=== PATIENT | female | born 1940 | race American Indian/Alaskan Native ===

== ENCOUNTER 2017-07-17 11:17 | Inpatient (IN) | payer MEDICARE ==
[2017-07-17] MEDS ORDERED: Albuterol-Ipratrop 3 mg / 0.5 (3 ml) UD IH STA (11:57)
[2017-07-17] MEDS ORDERED: Albuterol-Ipratrop 3 mg / 0.5 (3 ml) UD ONE ×4 (12:08→23:53)
[2017-07-17 12:10] LABS: BASO # 0.1 K/uL (0.0-0.2); BASO % 0.8 % (0.0-2.0); EOS % 0.1 % (0.0-4.0); HEMOGLOBIN 14.3 g/dL (11.0-16.0); LYMPH # 1.4 K/uL (1.0-4.3); LYMPH % 9.7 % (20.0-40.0); MEAN CELL VOLUME 91.1 fL (81.0-99.0); MEAN CORPUSCULAR HEMOGLOBIN 29.2 pg (27.0-31.0); MEAN PLATELET VOLUME 9.7 fL (7.2-11.7); MONO # 0.7 K/uL (0.0-0.8); MONO % 5.1 % (0.0-10.0); NEUT # 11.9 K/uL (1.8-7.0); NEUT % 84.3 % (50.0-75.0); NRBC % 0.1 % (0.0-2.0); PLATELET COUNT 131 K/uL (130-400); RED CELL DISTRIBUTION WIDTH 16.2 % (11.5-14.5); WHITE BLOOD COUNT 14.1 K/uL (4.8-10.8)
[2017-07-17 12:19] LABS: INR 0.9; PROTHROMBIN TIME 10.1 SECONDS (9.7-12.2)
[2017-07-17 12:31] LABS: ALB/GLOB RATIO 1.3 (1.0-2.1); ALBUMIN 3.9 g/dL (3.5-5.0); CALCIUM 9.2 mg/dl (8.6-10.4)
[2017-07-17 12:37] LABS: TOTAL CELLS COUNTED 100
[2017-07-17 12:39] LABS: ANISOCYTOSIS SLIGHT; LYMPHOCYTE 10 % (20-40); MONOCYTE 5 % (0-10); NEUTROPHIL 85 % (50-75); PLATELET ESTIMATE NORMAL (NORMAL)
[2017-07-17 12:41] LABS: TROPONIN I 0.038 ng/mL (0.00-0.120)
--- NOTE | 2017-07-17 13:07 | RAD ---
HISTORY: SOB COMPARISON: None available. TECHNIQUE: Chest, one view. FINDINGS: Examination limited by habitus. The patient's chin obscures evaluation of the lung apices. External artifact projects over the upper mediastinum. LUNGS: No focal consolidation. Please note that chest x-ray has limited sensitivity for the detection of pulmonary masses. PLEURA: No significant pleural effusion identified. No definite pneumothorax . CARDIOVASCULAR: Median sternotomy wires, several of which appear discontinuous. Heart size appears top normal. OSSEOUS STRUCTURES: No acute osseous abnormality identified. VISUALIZED UPPER ABDOMEN: Unremarkable. OTHER FINDINGS: None. IMPRESSION: No focal consolidation identified. Additional findings as above.
[2017-07-17 14:39] LABS: SQUAMOUS EPITHIAL < 1 /hpf (0-5); URINE BILIRUBIN NEGATIVE (NEGATIVE); URINE BLOOD NEGATIVE (NEGATIVE); URINE CLARITY Clear (Clear); URINE COLOR Straw (YELLOW); URINE GLUCOSE (UA) NORMAL (Normal); URINE LEUKOCYTE ESTERASE NEG Leu/uL (Negative); URINE NITRATE NEGATIVE (NEGATIVE); URINE PROTEIN 2+ mg/dL (NEGATIVE); URINE UROBILINOGEN NORMAL mg/dL (0.2-1.0)
[2017-07-17] MEDS ORDERED: Enoxaparin 40 mg Syringe SC STA (14:49)
--- NOTE | 2017-07-17 14:54 | C.PDOC ---
History Of Present Illness 76 year old female presents to the ER with a complaint of SOB. Patient states she was seen at [facility] yesterday for COPD, she reports she was discharged home with no improvement and states it has gotten worse which prompted visit. Denies chest pain, nausea, or vomiting. Time Seen by Provider: 07/17/17 11:37 Chief Complaint (Nursing): Respiratory Distress History Per: Patient History/Exam Limitations: no limitations Current Symptoms Are (Timing): Still Present Initiating Event: Other (not known) Current Respiratory Medications: None Associated Symptoms: denies: Fever, Chills, Chest Pain Recent travel outside of the [place]: No Past Medical History Vital Signs: Last Vital Signs Temp 99.3 F 07/17/17 11:23 Pulse 96 H 07/17/17 14:30 Resp 26 H 07/17/17 14:30 BP 133/86 07/17/17 14:30 Pulse Ox 100 07/17/17 14:54 - Medical History PMH: Atrial Fibrillation (UNSURE), COPD, HTN Surgical History: CABG Family History: States: Unknown Family Hx - Social History Hx Alcohol Use: No Hx Substance Use: No - Immunization History Hx Tetanus Toxoid Vaccination: No Hx Influenza Vaccination: No Hx Pneumococcal Vaccination: No Review Of Systems Constitutional: Negative for: Fever, Chills Cardiovascular: Negative for: Chest Pain, Palpitations Respiratory: Positive for: Shortness of Breath Gastrointestinal: Negative for: Nausea, Vomiting, Diarrhea Physical Exam - Physical Exam Appears: Chronically Ill, Other (SOB) Skin: Normal Color, Warm, Dry Head: Atraumatic, Normacephalic Eye(s): bilateral: Normal Inspection Oral Mucosa: Moist Neck: Normal, Supple Chest: Symmetrical, No Tenderness Cardiovascular: Rhythm Regular Respiratory: Decreased Breath Sounds, No Rales, No Rhonchi, No Wheezing Gastrointestinal/Abdominal: Soft, No Tenderness Neurological/Psych: Oriented x3, Normal Speech ED Course And Treatment - Laboratory Results Result Diagrams: 07/17/17 12:05 07/17/17 12:05 ECG: Interpreted By Me, Viewed By Me ECG Rhythm: Sinus Rhythm ECG Interpretation: Normal Interpretation Of ECG: Diffuse ST/T changes mostly in inferior leads. Rate From EC O2 Sat by Pulse Oximetry: 100 (Room air) Pulse Ox Interpretation: Normal Progress Note: Patient refused bipap, started on nebulizer and solumedrol. Troponin was negative, bun/creatinine was elevated, d dimer was elevated. Patient was sent for VQ scan but could not tolerate it. Patient started on lovenox, case discussed with Dr. Wong who accepted patient to telemetry for admission. Disposition - Disposition Disposition Time: 14:54 Condition: SERIOUS - Clinical Impression Clinical Impression: Dyspnea, Chronic obstructive lung disease, Elevated d-dimer - PA / FITTING SUPERVISOR / Resident Statement MD/DO has reviewed & agrees with the documentation as recorded. - Scribe Statement The provider has reviewed the documentation as recorded by the Scribumu Wolfe All medical record entries made by the Malena were at my direction and personally dictated by me. I have reviewed the chart and agree that the record accurately reflects my personal performance of the history, physical exam, medical decision making, and the department course for this patient. I have also personally directed, reviewed, and agree with the discharge instructions and disposition.
[2017-07-17] MEDS ORDERED: Enoxaparin 60 mg Syringe ONE (14:58)
[2017-07-17] MEDS ORDERED: guaiFENesin-Codeine 100-10mg/5ml Syrup (10ml) UD PO PRN (15:20)
[2017-07-17] MEDS ORDERED: Oxycodone/Acetaminophen 5/325 mg Tab PO PRN (15:20)
[2017-07-17] MEDS ORDERED: Fluticasone Nasal 50 mcg/Spray NAS PRN ×2 (15:21→16:33)
--- NOTE | 2017-07-17 15:30 | CP.PCM.PN ---
Subjective - Date & Time of Evaluation Date of Evaluation: 07/17/17 Time of Evaluation: 15:28 - Subjective Subjective: CC: SOB, Cough, Chest Pain This patient is a 76yo F who was recently d/c from [facility] for similar symptoms yesterday. She states "she received some antibiotics and breathing treatments and didn't seem to get any better". She states she recently developed a cough as well, and just cannot seem to catch her breath. She states she feels diaphoretic as well. She is REFUSING bipap at this time, and also states that she is refusing intubation at any point to help save her life; she does however desire resuscitation (chest compressions) if her heart is to stop. She denies any leg swelling, or pink frothy sputum. She states the shortness of breath has gotten worse since she left the hospital. No sick contacts, no travel. PMhx: breast CA s/p mastectomy on the left, thyroid cancer, CABG for triple vessel disease (no heart attack according to patient) Allergies: Denies Meds: Pharmacy is [facility] on [facility] [phone] however was busy every time i called Surgeries: mastectomy, thyroid surgery??? Social: lives at home, walks with cane/walker, states she is independent in all IADL and ADL Objective - Vital Signs/Intake and Output Vital Signs (last 24 hours): Temp Pulse Resp BP Pulse Ox 99.3 F 96 H 30 H 145/83 100 07/17/17 11:23 07/17/17 11:23 07/17/17 11:50 07/17/17 11:23 07/17/17 14:54 - Medications Medications: Current Medications Acetaminophen (Tylenol 325mg Tab) 650 mg PO Q6 PRN PRN Reason: Fever >100.4 F Albuterol/Ipratropium (Duoneb 3 Mg/0.5 Mg (3 Ml) Ud) 3 ml INH RQ4 PRN PRN Reason: SOB Aspirin (Ecotrin) 81 mg PO DAILY [facility] Clopidogrel Bisulfate (Plavix) 75 mg PO DAILY [facility] Enalapril Maleate (Vasotec) 2.5 mg PO DAILY [facility] Enoxaparin Sodium (Lovenox) 60 mg SC Q12 [facility] Famotidine (Pepcid) 20 mg PO DAILY [facility] Fluticasone Propionate (Flonase) 1 spr DAVID DAILY PRN PRN Reason: stuffy nose Guaifenesin/Codeine Phosphate (Guaifenesin/Codeine) 10 ml PO Q6H PRN PRN Reason: Cough Piperacillin Sod/Tazobactam (Sod 3.375 gm/ Sodium Chloride) 100 mls @ 200 mls/ hr IVPB Q12H [facility] Vancomycin HCl 1 gm/ Sodium (Chloride) 250 mls @ 166.7 mls/hr IVPB Q24H [facility] Ibuprofen (Motrin Tab) 400 mg PO Q6 PRN PRN Reason: Pain, Mild (1-3) Methylprednisolone (Solu-Medrol) 40 mg IVP Q8H [facility] Metoprolol Tartrate (Lopressor) 50 mg PO BID [facility] Ondansetron HCl (Zofran Inj) 4 mg IVP Q6 PRN PRN Reason: Nausea/Vomiting Oxycodone/Acetaminophen (Percocet 5/325 Mg Tab) 1 tab PO Q6H PRN PRN Reason: Pain, moderate (4-7) Stop: 07/20/17 15:21 Spironolactone (Aldactone) 25 mg PO BID [facility] - Labs Labs: 07/17/17 12:05 07/17/17 12:05 PT 10.1 SECONDS (9.7-12.2) 07/17/17 12:05 INR 0.9 07/17/17 12:05 APTT 29 SECONDS (21-34) 07/17/17 12:05 - Constitutional Appears: In Acute Distress (patient is currently tripoding in bed, speaking in 2 -3 word sentences, looks very tired ), Chronically Ill - Head Exam Head Exam: ATRAUMATIC, NORMAL INSPECTION - Eye Exam Eye Exam: EOMI, Normal appearance, PERRL Pupil Exam: NORMAL ACCOMODATION - ENT Exam ENT Exam: Mucous Membranes Dry - Neck Exam Neck Exam: Full ROM. absent: Lymphadenopathy - Respiratory Exam Respiratory Exam: Prolonged Expiratory Phase, Rales, Wheezes, Respiratory Distress. absent: Accessory Muscle Use, Chest Wall Tenderness, Decreased Breath Sounds, Clear to Ausculation Bilateral, Stridor, NORMAL BREATHING PATTERN - Cardiovascular Exam Cardiovascular Exam: Tachycardia, +S1, +S2 - GI/Abdominal Exam GI & Abdominal Exam: Soft, Normal Bowel Sounds. absent: Tenderness, Organomegaly, Pulsatile Mass, Rebound - Extremities Exam Extremities Exam: Full ROM. absent: Calf Tenderness - Back Exam Back Exam: NORMAL INSPECTION. absent: CVA tenderness (L), CVA tenderness (R) - Neurological Exam Neurological Exam: Alert, Awake, Oriented x3 - Psychiatric Exam Psychiatric exam: Normal Affect - Skin Skin Exam: Warm Assessment and Plan - Assessment and Plan (Free Text) Assessment: 76yo F admitted to the hospital for respiratory distress Respiratory Distress 2/2 to COPD vs PE vs ACS -patient refusing bipap and intubation at this time; patient is DNI -f/u rapid flu -f/u blood cultures -ABG Shock panel -patient is retaining CO2; 42 on 6L NC; highly recommend bipap even though patient refusing -lactate 1.3 -again should patient decompensate she is REFUSING intubation -patient received Lovenox 60mg in ER for possible PE; however in [place] and will place on Heparin drip at 4am (12 hours after first lovenox dose) -patient is refusing VQ scan at this time; cannot do PE Protocol CTA 2/2 to [place] -tachycardic, SOB, unknown anticoagulation status at hospital visit, previous cancer diagnosis, elevated D-Dimer-->high risk for PE -STAT Echo ordered; f/u results; Right Heart strain more indicative of PE; BNP elevated 1400 -patient with known CAD/CHF (patient does not know previous EF); most recent lexiscan was normal in 04/11 but had previous CABG for triple vessel disease -Initial Troponin negative; no suspicious findings on EKG; patient will be on heparin drip which will cover as well for possible NSTEMI -aspirin, plavix, patient states she takes aldactone? -Duonebs, Solumedrol, O2 Via ventimask PRN -patient cannot remember what COPD meds she takes -still smoking; will give nicotine patch -Telemetry Monitoring Prev Hx of CAD and HTN As per pharmacy records: Metoprolol 50 BID Plavix 75 daily Spironolactone 25 BID Vit D 50k weekly (will hold) Losartan 25mg daily (will hold) Albuterol PRN as needed Q4H Spiriva 18mcg BID Will hold Losartan given that CLARISA and ARB should not be mixed; could be contributing to TE[place] Possible PNA -Vanc 1g Q24H -Zosyn 4g Q12H -HAP since recently discharged from hospital setting [facility] -Elevated WBC, Cough, productive sputum Prophylaxis Pepcid Heart Healthy Diet Heparin Drip PT/OT Eval and treat Case discussed with Dr. Wong
[2017-07-17] MEDS ORDERED: Piperacillin/Tazobact 3.375 gm 100 ML IVPB ONE (15:34)
[2017-07-17] MEDS: Albuterol-Ipratrop 3 mg / 0.5 (3 ml) UD INH PRN (15:41)
[2017-07-17 15:42] LABS: ARTERIAL BLOOD GAS HCO3 24.5 mmol/L (21-28); ARTERIAL BLOOD GAS O2 SAT 99.7 % (95-98); ARTERIAL BLOOD GAS PCO2 46 mm/Hg (35-45); ARTERIAL BLOOD GAS PH 7.35 (7.35-7.45); ARTERIAL BLOOD GAS PO2 121 mm/Hg (80-100); ARTERIAL BLOOD GAS TCO2 26.8 mmol/L (22-28)
[2017-07-17] MEDS: Piperacill/Tazo 4.5gm in Dex 4.5 GM/100 ML BAG IVPB SCH (16:00)
[2017-07-17] MEDS ORDERED: Vancomycin 1 gm/NS 200 ml 1 GM/200 ML BAG IVPB SCH (16:30)
[2017-07-17 20:50] LABS: CK-MB 4.46 ng/mL (0.0-3.38); TROPONIN I 0.064 ng/mL (0.00-0.120)
[2017-07-17] MEDS ORDERED: Albuterol-Ipratrop 3 mg / 0.5 (3 ml) UD INH STA (23:57)
[2017-07-18] MEDS ORDERED: Albuterol-Ipratrop 3 mg / 0.5 (3 ml) UD INH SCH
[2017-07-18] MEDS: Magnesium Sulfate 1 gm in D5W 1 GM/100 ML BAG IVPB SCH ×2 (00:05→00:31)
[2017-07-18] MEDS ORDERED: Piperacillin/Tazobact 3.375 gm 100 ML IVPB ONE (00:27)
[2017-07-18] MEDS ORDERED: Magnesium Sulfate 1 gm in D5W 1 GM/100 ML BAG IVPB ONE (00:27)
[2017-07-18] MEDS: Albuterol-Ipratrop 3 mg / 0.5 (3 ml) UD INH SCH ×7 (00:33→23:50)
--- NOTE | 2017-07-18 00:43 | CP.PCM.CON ---
History of Present Illness - History of Present Illness History of Present Illness: 76 y/o female with pmx of COPD (currently smoking [employer]), h/o heart failure presents to [facility] with SOB. Patient was admitted for COPD exacerbation. Patient denies any chest pain, denies any abdominal pain, denies any headaches. Patient is speaking in 6-10 word sentences. Review of Systems - Review of Systems Systems not reviewed;Unavailable: Acuity of Condition, Respiratory Distress - Cardiovascular Cardiovascular: absent: Dyspnea - Respiratory Respiratory: Dyspnea. absent: Hemoptysis - Gastrointestinal Gastrointestinal: absent: Abdominal Pain, Bloating - Genitourinary Genitourinary: absent: Change in Urinary Stream - Neurological Neurological: absent: Dizziness, Loss of Vision Past Patient History - Infectious Disease Hx of Infectious Diseases: None - Past Social History Smoking Status: Heavy Smoker > 10 Cigarettes Daily - CARDIAC Hx Atrial Fibrillation: Yes (UNSURE) Hx Hypertension: Yes - PULMONARY Hx Chronic Obstructive Pulmonary Disease (COPD): Yes - NEUROLOGICAL Hx Neurological Disorder: No - HEENT Hx HEENT Problems: No - RENAL Hx Chronic Kidney Disease: No - ENDOCRINE/METABOLIC Hx Endocrine Disorders: No - HEMATOLOGICAL/ONCOLOGICAL Hx Cancer: Yes Hx Hepatitis C: No Hx Human Immunodeficiency Virus (HIV): No - INTEGUMENTARY Hx Dermatological Problems: No - MUSCULOSKELETAL/RHEUMATOLOGICAL Hx Falls: No Hx Gout: Yes Hx Unsteady Gait: Yes (uses cane) - GASTROINTESTINAL Hx Gastrointestinal Disorders: No - GENITOURINARY/GYNECOLOGICAL Hx Genitourinary Disorders: No - PSYCHIATRIC Hx Psychophysiologic Disorder: No Hx Substance Use: No - SURGICAL HISTORY Hx Coronary Artery Bypass Graft: Yes Hx Hysterectomy: Yes (partial 1976) Hx Mastectomy: Yes (Left 1984) - ANESTHESIA Hx Anesthesia: Yes Hx Anesthesia Reactions: No Meds Allergies/Adverse Reactions: Allergies Allergy/AdvReac Type Severity Reaction Status Date / Time No Known Allergies Allergy Verified 07/17/17 11:28 - Medications Medications: Current Medications Acetaminophen (Tylenol 325mg Tab) 650 mg PO Q6 PRN PRN Reason: Fever >100.4 F Albuterol/Ipratropium (Duoneb 3 Mg/0.5 Mg (3 Ml) Ud) 3 ml INH RQ4 [facility] Albuterol/Ipratropium (Duoneb 3 Mg/0.5 Mg (3 Ml) Ud) 3 ml INH RQ4 [facility] Aspirin (Ecotrin) 81 mg PO DAILY [facility] Clopidogrel Bisulfate (Plavix) 75 mg PO DAILY [facility] Famotidine (Pepcid) 20 mg PO DAILY [facility] Last Admin: 07/17/17 16:00 Dose: 20 mg Fluticasone Propionate (Flonase) 1 spr DAVID DAILY PRN PRN Reason: stuffy nose Guaifenesin/Codeine Phosphate (Guaifenesin/Codeine) 10 ml PO Q6H PRN PRN Reason: Cough Piperacillin Sod/Tazobactam Sod (Zosyn 4.5 Gm Iv Premix) 4.5 gm in 100 mls @ 200 mls/hr IVPB Q8H [facility] Last Admin: 07/17/17 16:00 Dose: 200 mls/hr Vancomycin/Sodium Chloride (Vancomycin 1 Gm/Ns 200 Ml) 1 gm in 200 mls @ 133.333 mls/hr IVPB Q24H [facility] Stop: 07/22/17 16:31 Last Admin: 07/17/17 17:34 Dose: 133.333 mls/hr Heparin Sodium/Sodium Chloride (Heparin 59709 Units/250ml 1/2 Normal Saline) 25 ,000 units in 250 mls @ 11.431 mls/hr IV .[id number] PRN; Protocol; 18 UNITS/KG/HR PRN Reason: ADJUST RATE PER PROTOCOL Magnesium Sulfate/Dextrose (Magnesium Sulfate 1 Gm/100 Ml D5w) 1 gm in 100 mls @ 300 mls/hr IVPB Q30M [facility] Stop: 07/18/17 00:34 Ibuprofen (Motrin Tab) 400 mg PO Q6 PRN PRN Reason: Pain, Mild (1-3) Methylprednisolone (Solu-Medrol) 40 mg IVP Q8H [facility] Metoprolol Tartrate (Lopressor) 50 mg PO BID [facility] Last Admin: 07/17/17 18:46 Dose: 50 mg Nicotine (Nicoderm Cq) 1 patch TD DAILY [facility] Last Admin: 07/17/17 17:34 Dose: 1 patch Ondansetron HCl (Zofran Inj) 4 mg IVP Q6 PRN PRN Reason: Nausea/Vomiting Physical Exam - Head Exam Head Exam: ATRAUMATIC, NORMAL INSPECTION, NORMOCEPHALIC - Respiratory Exam Respiratory Exam: Clear to Auscultation Bilateral, NORMAL BREATHING PATTERN - Cardiovascular Exam Cardiovascular Exam: +S1, +S2, +S4, Systolic Murmur - GI/Abdominal Exam GI & Abdominal Exam: Normal Bowel Sounds, Soft - Extremities Exam Extremities exam: Positive for: pedal edema Results - Vital Signs Recent Vital Signs: Last Vital Signs Temp 99.3 F 07/17/17 11:23 Pulse 79 07/17/17 21:19 Resp 32 H 07/17/17 23:48 BP 122/66 07/17/17 21:15 Pulse Ox 99 07/17/17 21:15 - Labs Result Diagrams: 07/17/17 12:05 07/17/17 12:05 Labs: Laboratory Results - last 24 hr 07/17/17 07/17/17 07/17/17 12:05 12:05 12:05 WBC 14.1 H RBC 4.90 Hgb 14.3 Hct 44.7 MCV 91.1 MCH 29.2 MCHC 32.0 L RDW 16.2 H Plt Count 131 MPV 9.7 Neut % (Auto) 84.3 H Lymph % (Auto) 9.7 L [place] % (Auto) 5.1 Eos % (Auto) 0.1 Baso % (Auto) 0.8 Neut # (Auto) 11.9 H Lymph # (Auto) 1.4 [place] # (Auto) 0.7 Eos # (Auto) 0.0 Baso # (Auto) 0.1 Neutrophils % (Manual) 85 H Band Neutrophils % TEST NOT PERFORMED Lymphocytes % (Manual) 10 L Monocytes % (Manual) 5 Platelet Estimate Normal Anisocytosis (manual) Slight PT 10.1 INR 0.9 APTT 29 D-Dimer, Quantitative 1000 H Puncture Site pCO2 pO2 HCO3 ABG pH ABG Total CO2 ABG O2 Saturation ABG Base Excess Bhupinder Test ABG Potassium A-a O2 Difference Respiratory Index Glucose Lactate FiO2 Sodium 137 Potassium 5.8 H Chloride 100 Carbon Dioxide 29 Anion Gap 14 BUN 33 H Creatinine 1.6 H Est GFR ( Amer) 38 Est GFR (Non-Af Amer) 31 Random Glucose 93 Calcium 9.2 Total Bilirubin 0.5 AST 23 ALT 30 Alkaline Phosphatase 69 Total Creatine Kinase CK-MB (Mass) Troponin I 0.0380 NT-Pro-B Natriuret Pep 1740 H Total Protein 7.0 Albumin 3.9 Globulin 3.1 Albumin/Globulin Ratio 1.3 Arterial Blood Potassium Urine Color Urine Clarity Urine pH Ur Specific [place] Urine Protein Urine Glucose (UA) Urine Ketones Urine Blood Urine Nitrate Urine Bilirubin Urine Urobilinogen Ur Leukocyte Esterase Urine WBC (Auto) Urine RBC (Auto) Ur Squamous Epith Cells 07/17/17 07/17/17 07/17/17 14:29 15:39 20:19 WBC RBC Hgb Hct MCV MCH MCHC RDW Plt Count MPV Neut % (Auto) Lymph % (Auto) [place] % (Auto) Eos % (Auto) Baso % (Auto) Neut # (Auto) Lymph # (Auto) [place] # (Auto) Eos # (Auto) Baso # (Auto) Neutrophils % (Manual) Band Neutrophils % Lymphocytes % (Manual) Monocytes % (Manual) Platelet Estimate Anisocytosis (manual) PT INR APTT D-Dimer, Quantitative Puncture Site Right rad pCO2 46 H pO2 121 H HCO3 24.5 ABG pH 7.35 ABG Total CO2 26.8 ABG O2 Saturation 99.7 H ABG Base Excess -0.6 Bhupinder Test Na ABG Potassium 5.8 H A-a O2 Difference 107.0 Respiratory Index 0.9 Glucose 97 Lactate 1.3 FiO2 40.0 Sodium 136.0 Potassium Chloride 107.0 Carbon Dioxide Anion Gap BUN Creatinine Est GFR ( Amer) Est GFR (Non-Af Amer) Random Glucose Calcium Total Bilirubin AST ALT Alkaline Phosphatase Total Creatine Kinase 65 CK-MB (Mass) 4.46 H Troponin I 0.0640 NT-Pro-B Natriuret Pep Total Protein Albumin Globulin Albumin/Globulin Ratio Arterial Blood Potassium 5.8 H Urine Color Straw Urine Clarity Clear Urine pH 6.0 Ur Specific [place] 1.012 Urine Protein 2+ H Urine Glucose (UA) Normal Urine Ketones Negative Urine Blood Negative Urine Nitrate Negative Urine Bilirubin Negative Urine Urobilinogen Normal Ur Leukocyte Esterase Neg Urine WBC (Auto) 1 Urine RBC (Auto) < 1 Ur Squamous Epith Cells < 1 Assessment & Plan - Assessment and Plan (Free Text) Assessment: ACute COPD exacerbation: Patient was started on IV solumedrol, duonebs, started 2 gm mag sulfate, -Patient strongly advised to stop Smoking. -at risk of CAD/CHronic heart failure: staart dual antipaltelet, av-brea daryn, avoid fluid overloaded states -Hyperpotassemia: with increase in creatinine, hold acei and hold spironolactone -High D-dimer: with underlying renal failure: -check LE dopplers and obtain VQ scan, the pre-test probability of PE is low as patient's symptoms improved with treatment for COPD exacerbation -patient already received lovenox 60 mg, hold heparin -Leukocytosis: obtain procalcitonin, check influenza, arita culture, serial lactic , start empirical abx (ceftriaxone/doxy), suspect leukocytosis 2nd prednisone provided from [facility] -continue dvt/pud ppx Patient able to speak in 8-10 word sentences. Nursing worry patient may need close monitoring. cc time 35 minutes - Date & Time Date: 07/18/17 Time: 01:57
[2017-07-18] MEDS: Piperacill/Tazo 4.5gm in Dex 4.5 GM/100 ML BAG IVPB SCH ×2 (00:50→08:55)
[2017-07-18] MEDS ORDERED: Heparin25000 units/250ml 1/2NS 25,000 UNITS/250 ML BAG IV PRN ×3 (03:34→04:00)
[2017-07-18] MEDS ORDERED: Albuterol-Ipratrop 3 mg / 0.5 (3 ml) UD INH STA (04:05)
[2017-07-18 04:50] LABS: BARBITURATES, UR NEGATIVE (NEGATIVE); BENZODIAZEPINES, UR NEGATIVE (NEGATIVE); OPIATES, UR NEGATIVE (NEGATIVE)
[2017-07-18] MEDS: Albuterol-Ipratrop 3 mg / 0.5 (3 ml) UD INH PRN ×2 (05:01→05:02)
[2017-07-18 05:26] LABS: PHENCYCLIDINE, UR NEGATIVE (NEGATIVE)
[2017-07-18 07:03] LABS: BASO % 0.2 % (0.0-2.0); LYMPH # 0.5 K/uL (1.0-4.3); LYMPH % 3.9 % (20.0-40.0); MEAN CORPUSCULAR HEMOGLOBIN 29.3 pg (27.0-31.0); MEAN CORPUSCULAR HGB CONC 32.2 g/dL (33.0-37.0); MEAN PLATELET VOLUME 9.9 fL (7.2-11.7); MONO # 0.3 K/uL (0.0-0.8); MONO % 2.9 % (0.0-10.0); NEUT # 11.1 K/uL (1.8-7.0); PLATELET COUNT 111 K/uL (130-400); RBC 4.76 Mil/uL (3.80-5.20); RED CELL DISTRIBUTION WIDTH 16.2 % (11.5-14.5); WHITE BLOOD COUNT 11.9 K/uL (4.8-10.8)
[2017-07-18] MEDS ORDERED: Fluticasone-Salmeterol 500-50mcg Diskus INH SCH (08:00)
[2017-07-18 08:09] LABS: ALB/GLOB RATIO 1.4 (1.0-2.1); ALBUMIN 3.6 g/dL (3.5-5.0); CALCIUM 9.4 mg/dl (8.6-10.4)
[2017-07-18 09:04] LABS: CK-MB 4.51 ng/mL (0.0-3.38)
[2017-07-18 09:14] LABS: TROPONIN I 0.065 ng/mL (0.00-0.120)
[2017-07-18 09:20] LABS: ANISOCYTOSIS SLIGHT; LYMPHOCYTE 4 % (20-40); MONOCYTE 2 % (0-10); NEUTROPHIL 94 % (50-75); PLATELET ESTIMATE SLIGHTLY DECREASED (NORMAL); TOTAL CELLS COUNTED 100
[2017-07-18] MEDS ORDERED: Enoxaparin 60 mg Syringe SC SCH (10:00)
[2017-07-18] MEDS ORDERED: Sod Polystyrene Sulf 15 gm/60 ml Susp PO ONE (10:30)
[2017-07-18] MEDS ORDERED: (Novolin R) Insulin Human Regular 100 units/ml vial IV ONE (10:59)
[2017-07-18] MEDS ORDERED: Dextrose 50% SYRINGE Inj (50 ml) IV STA (11:01)
[2017-07-18] MEDS ORDERED: Sodium Chloride 0.9% 1,000 ML IV SCH (11:15)
[2017-07-18] MEDS: Azithromycin 500 MG in Sodium Chloride 0.9% 250 ML IVPB SCH (12:00)
--- NOTE | 2017-07-18 12:00 | CARD ---
APPROVED REPORT EKG Measurement Heart [id number] CT [id number] <Conclusion> Normal sinus rhythm Possible Left atrial enlargement Septal infarct, age undetermined ST & T wave abnormality, consider inferior ischemia Abnormal ECG
[2017-07-18] MEDS: MethylPREDNISolone 40 mg Vial IVP SCH ×2 (14:32→22:06)
[2017-07-19] MEDS: Albuterol-Ipratrop 3 mg / 0.5 (3 ml) UD INH SCH ×5 (03:10→20:58)
[2017-07-19] MEDS: MethylPREDNISolone 40 mg Vial IVP SCH ×3 (06:08→22:01)
[2017-07-19 08:20] LABS: ALB/GLOB RATIO 1.3 (1.0-2.1); ALBUMIN 3.7 g/dL (3.5-5.0); CALCIUM 8.9 mg/dl (8.6-10.4)
[2017-07-19] MEDS: Azithromycin 500 MG in Sodium Chloride 0.9% 250 ML IVPB SCH (09:53)
[2017-07-19] MEDS ORDERED: Sod Polystyrene Sulf 15 gm/60 ml Susp PO ONE (11:40)
[2017-07-19 12:00] LABS: BASO % 0.2 % (0.0-2.0); EOS % 0.1 % (0.0-4.0); HEMOGLOBIN 14.6 g/dL (11.0-16.0); LYMPH # 0.4 K/uL (1.0-4.3); LYMPH % 2.8 % (20.0-40.0); MEAN CELL VOLUME 92.4 fL (81.0-99.0); MEAN CORPUSCULAR HEMOGLOBIN 29.5 pg (27.0-31.0); MEAN CORPUSCULAR HGB CONC 31.9 g/dL (33.0-37.0); MEAN PLATELET VOLUME 10.1 fL (7.2-11.7); MONO # 0.5 K/uL (0.0-0.8); MONO % 3.4 % (0.0-10.0); NEUT % 93.5 % (50.0-75.0); PLATELET COUNT 123 K/uL (130-400); RBC 4.97 Mil/uL (3.80-5.20); RED CELL DISTRIBUTION WIDTH 16.5 % (11.5-14.5); WHITE BLOOD COUNT 14.9 K/uL (4.8-10.8)
[2017-07-19 12:31] LABS: BANDS 2 % (0-2); LYMPHOCYTE 2 % (20-40); MONOCYTE 5 % (0-10); NEUTROPHIL 91 % (50-75); PLATELET ESTIMATE SLIGHTLY DECREASED (NORMAL); TOTAL CELLS COUNTED 100
[2017-07-19 12:32] LABS: ANISOCYTOSIS SLIGHT; HYPOCHROMIC SLIGHT; LARGE PLATELETS PRESENT; POLYCHROMIC SLIGHT
--- NOTE | 2017-07-19 20:03 | CARD ---
APPROVED REPORT EKG Measurement Heart [id number] [place] 134P76 [id number] <Conclusion> Sinus rhythm with premature supraventricular complexes and with occasional premature ventricular complexes Septal infarct, age undetermined T wave abnormality, consider inferior ischemia Abnormal ECG
[2017-07-20] MEDS: Albuterol-Ipratrop 3 mg / 0.5 (3 ml) UD INH SCH ×4 (00:34→20:24)
[2017-07-20] MEDS: MethylPREDNISolone 40 mg Vial IVP SCH ×3 (06:46→21:46)
[2017-07-20] MEDS: Azithromycin 500 MG in Sodium Chloride 0.9% 250 ML IVPB SCH (11:30)
[2017-07-20 11:38] LABS: BASO % 0.1 % (0.0-2.0); HEMOGLOBIN 13.2 g/dL (11.0-16.0); LYMPH # 0.3 K/uL (1.0-4.3); MEAN CELL VOLUME 92.3 fL (81.0-99.0); MEAN CORPUSCULAR HEMOGLOBIN 29.3 pg (27.0-31.0); MEAN CORPUSCULAR HGB CONC 31.7 g/dL (33.0-37.0); MONO # 0.2 K/uL (0.0-0.8); MONO % 1.9 % (0.0-10.0); NEUT # 12.2 K/uL (1.8-7.0); PLATELET COUNT 126 K/uL (130-400); RBC 4.49 Mil/uL (3.80-5.20); RED CELL DISTRIBUTION WIDTH 16.8 % (11.5-14.5); WHITE BLOOD COUNT 12.8 K/uL (4.8-10.8)
[2017-07-20 11:52] LABS: ALB/GLOB RATIO 1.2 (1.0-2.1); ALBUMIN 3.5 g/dL (3.5-5.0); CALCIUM 7.9 mg/dl (8.6-10.4)
[2017-07-20 12:17] LABS: BANDS 1 % (0-2); LYMPHOCYTE 4 % (20-40); MONOCYTE 2 % (0-10); NEUTROPHIL 93 % (50-75); PLATELET ESTIMATE SLIGHTLY DECREASED (NORMAL); TOTAL CELLS COUNTED 100
[2017-07-20 12:18] LABS: ANISOCYTOSIS SLIGHT
[2017-07-21] MEDS: Albuterol-Ipratrop 3 mg / 0.5 (3 ml) UD INH SCH ×6 (00:04→19:36)
[2017-07-21] MEDS: MethylPREDNISolone 40 mg Vial IVP SCH ×3 (06:51→22:15)
--- NOTE | 2017-07-21 08:59 | CP.PCM.PN ---
Subjective - Date & Time of Evaluation Date of Evaluation: 07/21/17 Time of Evaluation: 07:10 - Subjective Subjective: PGY2 Medicine Note - Dr. Wong Patient seen and examined at bedside. She reports feeling well and has no acute complaints. Patient is AAOx1, only oriented to self, not place / time. She is very suspicious and refuses most intervention. She refused Echo and V/Q scan despite several attempts by staff. She also refused lung exam via auscultation. Otherwise pleasant and in no acute distress. Denies f/c, dizziness, SOB, chest pain, LE pain / discomfort, n/v, d/c, or any additional complaints. Objective - Vital Signs/Intake and Output Vital Signs (last 24 hours): Temp Pulse Resp BP Pulse Ox 96.9 F L 66 18 115/68 97 07/20/17 23:18 07/20/17 23:18 07/20/17 23:18 07/20/17 23:18 07/20/17 23:18 Intake and Output: 07/21/17 07/21/17 06:59 18:59 Intake Total 250 Balance 250 - Medications Medications: Current Medications Acetaminophen (Tylenol 325mg Tab) 650 mg PO Q6 PRN PRN Reason: Fever >100.4 F Albuterol/Ipratropium (Duoneb 3 Mg/0.5 Mg (3 Ml) Ud) 3 ml INH RQ4 [facility] Last Admin: 07/21/17 07:30 Dose: 3 ml Aspirin (Ecotrin) 81 mg PO DAILY [facility] Last Admin: 07/20/17 10:31 Dose: 81 mg Clopidogrel Bisulfate (Plavix) 75 mg PO DAILY [facility] Last Admin: 07/20/17 10:31 Dose: 75 mg Famotidine (Pepcid) 20 mg PO DAILY [facility] Last Admin: 07/20/17 10:31 Dose: 20 mg Fluticasone Propionate (Flonase) 1 spr DAVID DAILY PRN PRN Reason: stuffy nose Guaifenesin/Codeine Phosphate (Guaifenesin/Codeine) 10 ml PO Q6H PRN PRN Reason: Cough Heparin Sodium (Porcine) (Heparin) 5,000 units SC Q8 [facility] Last Admin: 07/21/17 06:02 Dose: 5,000 units Azithromycin 500 mg/ Sodium (Chloride) 250 mls @ 250 mls/hr IVPB DAILY [facility] Last Admin: 07/20/17 11:30 Dose: 250 mls/hr Ceftriaxone Sodium 1 gm/ (Sodium Chloride) 100 mls @ 100 mls/hr IVPB DAILY [facility] Last Admin: 07/20/17 10:33 Dose: 100 mls/hr Ibuprofen (Motrin Tab) 400 mg PO Q6 PRN PRN Reason: Pain, Mild (1-3) Last Admin: 07/20/17 13:51 Dose: 400 mg Methylprednisolone (Solu-Medrol) 40 mg IVP Q8H [facility] Last Admin: 07/21/17 06:51 Dose: 40 mg Metoprolol Tartrate (Lopressor) 50 mg PO BID [facility] Last Admin: 07/20/17 18:45 Dose: 50 mg Nicotine (Nicoderm Cq) 1 patch TD DAILY [facility] Last Admin: 07/20/17 10:31 Dose: 1 patch Ondansetron HCl (Zofran Inj) 4 mg IVP Q6 PRN PRN Reason: Nausea/Vomiting Last Admin: 07/18/17 13:32 Dose: 4 mg - Labs Labs: 07/20/17 11:30 07/20/17 11:30 PT 10.1 SECONDS (9.7-12.2) 07/17/17 12:05 INR 0.9 07/17/17 12:05 APTT 29 SECONDS (21-34) 07/17/17 12:05 - Additional Findings Additional findings: - Constitutional Appears: Chronically Ill - Head Exam Head Exam: ATRAUMATIC, NORMAL INSPECTION - Eye Exam Eye Exam: EOMI, Normal appearance, PERRL Pupil Exam: NORMAL ACCOMODATION - ENT Exam ENT Exam: Mucous Membranes Dry - Neck Exam Neck Exam: Full ROM. absent: Lymphadenopathy - Respiratory Exam Respiratory Exam: Wheezes (with normal breathing, patient would not cooperate with deep inspirations). absent: Accessory Muscle Use, Respiratory Distress, Chest Wall Tenderness, Decreased Breath Sounds, Stridor - Cardiovascular Exam Cardiovascular Exam: Tachycardia, +S1, +S2 - GI/Abdominal Exam GI & Abdominal Exam: Soft, Normal Bowel Sounds. absent: Tenderness, Organomegaly, Pulsatile Mass, Rebound - Extremities Exam Extremities Exam: Full ROM. absent: Calf Tenderness - Back Exam Back Exam: NORMAL INSPECTION. absent: CVA tenderness (L), CVA tenderness (R) - Neurological Exam Neurological Exam: Alert, Awake, Oriented x3 - Psychiatric Exam Psychiatric exam: Normal Affect - Skin Skin Exam: Warm Assessment and Plan - Assessment and Plan (Free Text) Assessment: 76yo F admitted to the hospital for respiratory distress Respiratory Distress 2/2 to COPD vs PE vs ACS 07/21: Resolved. Pt is very suspicious and refuses most intervention. She refused Echo and V/Q scan despite several attempts by staff. She also refused lung exam via auscultation. -patient refusing bipap and intubation at this time; patient is DNI - rapid flu - Negative -blood cultures - Negative -ABG Shock panel -patient is retaining CO2; 42 on 6L NC; highly recommend bipap even though patient refusing -lactate 1.3 -again should patient decompensate she is REFUSING intubation -patient received Lovenox 60mg in ER for possible PE; however in [place] and will place on Heparin drip at 4am (12 hours after first lovenox dose) -patient is refusing VQ scan at this time; cannot do PE Protocol CTA 06/27 to [place] -tachycardic, SOB, unknown anticoagulation status at hospital visit, previous cancer diagnosis, elevated D-Dimer-->high risk for PE -STAT Echo ordered; f/u results; Right Heart strain more indicative of PE; BNP elevated 1400 -patient with known CAD/CHF (patient does not know previous EF); most recent lexiscan was normal in 04/11 but had previous CABG for triple vessel disease -Initial Troponin negative; no suspicious findings on EKG; patient will be on heparin drip which will cover as well for possible NSTEMI -aspirin, plavix, patient states she takes aldactone? -Duonebs, Solumedrol, O2 Via ventimask PRN -patient cannot remember what COPD meds she takes -still smoking; will give nicotine patch -Telemetry Monitoring Prev Hx of CAD and HTN As per pharmacy records: Metoprolol 50 BID Plavix 75 daily Spironolactone 25 BID Vit D 50k weekly (will hold) Losartan 25mg daily (will hold) Albuterol PRN as needed Q4H Spiriva 18mcg BID Will hold Losartan given that CLARISA and ARB should not be mixed; could be contributing to [place] Possible PNA 07/21: flu negative; Blood cultures negative -Vanc 1g Q24H -Zosyn 4g Q12H -HAP since recently [place] [facility] [place]Elevated W[place], Cough, productive sputum Prophylaxis Pepcid Heart Healthy Diet Heparin Drip PT/OT Eval and treat Disposition: PT recommends [facility]. S/W to contact family for possible transfer. Dr. Wong does not have additional family contact information. Case discussed with attending - all management as per Dr. Wong.
[2017-07-21] MEDS: Azithromycin 500 MG in Sodium Chloride 0.9% 250 ML IVPB SCH (10:10)
--- NOTE | 2017-07-21 10:16 | PN ---
DATE: 07/20/2017. The patient is complaining of shortness of breath and the patient is somewhat confused. Continue treatment with bronchodilators, advised the patient to use oxygen mask. Jayme Wong MD
--- NOTE | 2017-07-21 11:18 | HP ---
DATE: 07/17/2017 HISTORY OF PRESENT ILLNESS: A 76-year-old female with severe COPD, admitted to the hospital with chief complaint of shortness of breath, weakness, fatigue, tiredness. The patient came to the hospital, advised admission. Also the patient has been admitted in the past with COPD. PHYSICAL EXAMINATION: GENERAL: The patient is awake, alert, and oriented. VITAL SIGNS: Temperature 98, pulse 90. HEENT: Within normal limits. NECK: Supple. CHEST: Symmetrical. HEART: Regular. ABDOMEN: Soft. EXTREMITIES: No edema. IMPRESSION: The patient has chronic obstructive pulmonary disease, bronchitis. The patient is to get bedrest, supportive care, bronchodilators. Jayme Wong MD
[2017-07-22] MEDS: Albuterol-Ipratrop 3 mg / 0.5 (3 ml) UD INH SCH ×6 (03:54→20:06)
[2017-07-22] MEDS: MethylPREDNISolone 40 mg Vial IVP SCH ×3 (06:02→23:00)
--- NOTE | 2017-07-22 11:32 | CP.PCM.PN ---
Subjective - Date & Time of Evaluation Date of Evaluation: 07/22/17 Time of Evaluation: 07:10 - Subjective Subjective: PGY2 Medicine Note - Dr. Wong Patient seen and examined at bedside. Patient is AAOx1, only oriented to self, not place / time. She is very suspicious and refuses most intervention. She complied with lung exam today. However, she has refused Echo and V/Q scan despite several attempts. No additional attempts made. Otherwise she is in no acute distress and has no acute complaints. Denies f/c, dizziness, SOB, chest pain, LE pain / discomfort, n/v, d/c, or any additional complaints. Objective - Vital Signs/Intake and Output Vital Signs (last 24 hours): Temp Pulse Resp BP Pulse Ox 97.4 F L 76 20 166/92 H 95 07/22/17 08:34 07/22/17 08:34 07/22/17 08:34 07/22/17 08:34 07/22/17 08:34 Intake and Output: 07/22/17 07/22/17 06:59 18:59 Intake Total 100 Balance 100 - Medications Medications: Current Medications Acetaminophen (Tylenol 325mg Tab) 650 mg PO Q6 PRN PRN Reason: Fever >100.4 F Albuterol/Ipratropium (Duoneb 3 Mg/0.5 Mg (3 Ml) Ud) 3 ml INH RQ4 [facility] Last Admin: 07/22/17 07:36 Dose: Not Given Aspirin (Ecotrin) 81 mg PO DAILY [facility] Last Admin: 07/21/17 10:03 Dose: 81 mg Clopidogrel Bisulfate (Plavix) 75 mg PO DAILY [facility] Last Admin: 07/21/17 10:03 Dose: 75 mg Famotidine (Pepcid) 20 mg PO DAILY [facility] Last Admin: 07/21/17 10:08 Dose: 20 mg Fluticasone Propionate (Flonase) 1 spr DAVID DAILY PRN PRN Reason: stuffy nose Guaifenesin/Codeine Phosphate (Guaifenesin/Codeine) 10 ml PO Q6H PRN PRN Reason: Cough Heparin Sodium (Porcine) (Heparin) 5,000 units SC Q8 [facility] Last Admin: 07/22/17 06:02 Dose: 5,000 units Azithromycin 500 mg/ Sodium (Chloride) 250 mls @ 250 mls/hr IVPB DAILY [facility] Last Admin: 07/21/17 10:10 Dose: 250 mls/hr Ceftriaxone Sodium 1 gm/ (Sodium Chloride) 100 mls @ 100 mls/hr IVPB DAILY [facility] Last Admin: 07/21/17 10:10 Dose: 100 mls/hr Ibuprofen (Motrin Tab) 400 mg PO Q6 PRN PRN Reason: Pain, Mild (1-3) Last Admin: 07/20/17 13:51 Dose: 400 mg Methylprednisolone (Solu-Medrol) 40 mg IVP Q8H [facility] Last Admin: 07/22/17 06:02 Dose: 40 mg Metoprolol Tartrate (Lopressor) 50 mg PO BID [facility] Last Admin: 07/21/17 18:45 Dose: 50 mg Nicotine (Nicoderm Cq) 1 patch TD DAILY [facility] Last Admin: 07/21/17 10:03 Dose: 1 patch Ondansetron HCl (Zofran Inj) 4 mg IVP Q6 PRN PRN Reason: Nausea/Vomiting Last Admin: 07/18/17 13:32 Dose: 4 mg - Labs Labs: 07/20/17 11:30 07/20/17 11:30 PT 10.1 SECONDS (9.7-12.2) 07/17/17 12:05 INR 0.9 07/17/17 12:05 APTT 29 SECONDS (21-34) 07/17/17 12:05 - Additional Findings Additional findings: - Constitutional Appears: Chronically Ill - Head Exam Head Exam: ATRAUMATIC, NORMAL INSPECTION - Eye Exam Eye Exam: EOMI, Normal appearance, PERRL Pupil Exam: NORMAL ACCOMODATION - ENT Exam ENT Exam: Mucous Membranes Dry - Neck Exam Neck Exam: Full ROM. absent: Lymphadenopathy - Respiratory Exam Respiratory Exam: Wheezes (mild RLL). absent: Accessory Muscle Use, Respiratory Distress, Chest Wall Tenderness, Decreased Breath Sounds, Stridor - Cardiovascular Exam Cardiovascular Exam: Regular Rhythm, +S1, +S2 - GI/Abdominal Exam GI & Abdominal Exam: Soft, Normal Bowel Sounds. absent: Tenderness, Organomegaly, Pulsatile Mass, Rebound - Extremities Exam Extremities Exam: Full ROM. absent: Calf Tenderness - Back Exam Back Exam: NORMAL INSPECTION. absent: CVA tenderness (L), CVA tenderness (R) - Neurological Exam Neurological Exam: Alert, Awake; absent: Oriented x3 (oriented to person only) - Psychiatric Exam Psychiatric exam: Normal Affect - Skin Skin Exam: Warm Assessment and Plan - Assessment and Plan (Free Text) Assessment: 76yo F admitted to the hospital for respiratory distress Respiratory Distress /2 to COPD vs PE vs ACS 07/21-07/22: Resolved. Pt is very suspicious and refuses most intervention. She refused Echo and V/Q scan despite several attempts by staff. She also refused lung exam via auscultation. -patient refusing bipap and intubation at this time; patient is DNI - rapid flu - Negative -blood cultures - Negative -ABG Shock panel -patient is retaining CO2; 42 on 6L NC; highly recommend bipap even though patient refusing -lactate 1.3 -again should patient decompensate she is REFUSING intubation -patient received Lovenox 60mg in ER for possible PE; however in [place] and will place on Heparin drip at 4am (12 hours after first lovenox dose) -patient is refusing VQ scan at this time; cannot do PE Protocol CTA 06/27 to [place] -tachycardic, SOB, unknown anticoagulation status at hospital visit, previous cancer diagnosis, elevated D-Dimer-->high risk for PE -STAT Echo ordered; f/u results; Right Heart strain more indicative of PE; BNP elevated 1400 -patient with known CAD/CHF (patient does not know previous EF); most recent lexiscan was normal in 04/11 but had previous CABG for triple vessel disease -Initial Troponin negative; no suspicious findings on EKG; patient will be on heparin drip which will cover as well for possible NSTEMI -aspirin, plavix, patient states she takes aldactone? -Duonebs, Solumedrol, O2 Via ventimask PRN -patient cannot remember what COPD meds she takes -still smoking; will give nicotine patch -Telemetry Monitoring Acute Kidney Injury 07/22: BUN 88 / Cr 1.8 ; slowly rising Discontinue Motrin (last administered 07/20) 1/2 NS at 50cc/hr - patient is highly non-compliant / confused. Maintain hydration. Prev Hx of CAD and HTN 07/22: BP fluctuates 131/80 - 166/92, however patient also becomes very agitated. Monitor BP with IV hydration in place (started 07/22 14:00) As per pharmacy records: Metoprolol 50 BID Plavix 75 daily Spironolactone 25 BID Vit D 50k weekly (will hold) Losartan 25mg daily (will hold) Albuterol PRN as needed Q4H Spiriva 18mcg BID Will hold Losartan given that CLARISA and ARB should not be mixed; could be contributing to [place] Possible PNA 07/22: WBC 8.7 WNL; Blood cult negative x4d 07/21: flu negative; Blood cultures negative -Vanc 1g Q24H -Zosyn 4g Q12H -HAP since recently discharged from hospital setting [facility] [place] -Elevated WBC, Cough, productive sputum Prophylaxis Pepcid Heart Healthy Diet Heparin Drip PT/OT Eval and treat Disposition: PT recommends [facility]. S/W to contact family for possible transfer. Dr. Wong does not have additional family contact information. Case discussed with attending - all management as per Dr. Wong.
[2017-07-22 11:37] LABS: BASO % 0.2 % (0.0-2.0); HEMOGLOBIN 14.3 g/dL (11.0-16.0); LYMPH # 0.4 K/uL (1.0-4.3); LYMPH % 4.2 % (20.0-40.0); MEAN CELL VOLUME 90.5 fL (81.0-99.0); MEAN CORPUSCULAR HEMOGLOBIN 29.4 pg (27.0-31.0); MEAN CORPUSCULAR HGB CONC 32.5 g/dL (33.0-37.0); MEAN PLATELET VOLUME 10.3 fL (7.2-11.7); MONO # 0.2 K/uL (0.0-0.8); MONO % 2.3 % (0.0-10.0); NEUT # 8.1 K/uL (1.8-7.0); NEUT % 93.3 % (50.0-75.0); NRBC % 0.2 % (0.0-2.0); PLATELET COUNT 123 K/uL (130-400); RBC 4.88 Mil/uL (3.80-5.20); RED CELL DISTRIBUTION WIDTH 15.9 % (11.5-14.5); WHITE BLOOD COUNT 8.7 K/uL (4.8-10.8)
[2017-07-22 11:57] LABS: ALB/GLOB RATIO 1.2 (1.0-2.1); ALBUMIN 3.7 g/dL (3.5-5.0); CALCIUM 9.8 mg/dl (8.6-10.4)
[2017-07-22 12:15] LABS: ANISOCYTOSIS SLIGHT; LYMPHOCYTE 5 % (20-40); MONOCYTE 4 % (0-10); NEUTROPHIL 91 % (50-75); PLATELET ESTIMATE SLIGHTLY DECREASED (NORMAL); POIKILOCYTOSIS SLIGHT; TOTAL CELLS COUNTED 100
[2017-07-22 12:16] LABS: LARGE PLATELETS PRESENT
[2017-07-22] MEDS: Azithromycin 500 MG in Sodium Chloride 0.9% 250 ML IVPB SCH (12:44)
[2017-07-22] MEDS ORDERED: Sodium Chloride 0.45% 1,000 ML IV SCH (14:30)
[2017-07-23] MEDS: Albuterol-Ipratrop 3 mg / 0.5 (3 ml) UD INH SCH ×6 (00:01→20:21)
[2017-07-23] MEDS: MethylPREDNISolone 40 mg Vial IVP SCH (06:12)
--- NOTE | 2017-07-23 10:56 | CP.PCM.PN ---
Subjective - Date & Time of Evaluation Date of Evaluation: 07/23/17 Time of Evaluation: 10:56 - Subjective Subjective: PGY2 Medicine Note for Dr. Wong; all management as per Dr. Wong This patient was seen and examined at bedside this AM; patient is refusing to have IV resinserted and often refuses many of her medicines; she denies any symptoms and states she "feels great and i don't know what you are doing for me here". She denies fevers/chills, DOMINGUEZ, CP, SOb, abdominal pain, N/V/D, dysuria/ freq/urg or lower extremity pain/swelling. The patient is cooperative with PT, and will need home O2 on discharge which she already has. Objective - Vital Signs/Intake and Output Vital Signs (last 24 hours): Temp Pulse Resp BP Pulse Ox 98.0 F 62 20 159/72 H 96 07/23/17 07:56 07/23/17 07:56 07/23/17 07:56 07/23/17 07:56 07/23/17 07:56 - Medications Medications: Current Medications Acetaminophen (Tylenol 325mg Tab) 650 mg PO Q6 PRN PRN Reason: Fever >100.4 F Albuterol/Ipratropium (Duoneb 3 Mg/0.5 Mg (3 Ml) Ud) 3 ml INH RQ4 [facility] Last Admin: 07/23/17 07:10 Dose: 3 ml Amlodipine Besylate (Norvasc) 10 mg PO DAILY [facility] Last Admin: 07/23/17 09:07 Dose: 10 mg Aspirin (Ecotrin) 81 mg PO DAILY [facility] Last Admin: 07/23/17 09:04 Dose: 81 mg Azithromycin (Zithromax) 500 mg PO DAILY [facility] Last Admin: 07/23/17 09:38 Dose: 500 mg Clopidogrel Bisulfate (Plavix) 75 mg PO DAILY [facility] Last Admin: 07/23/17 09:04 Dose: 75 mg Famotidine (Pepcid) 20 mg PO DAILY [facility] Last Admin: 07/23/17 09:04 Dose: 20 mg Fluticasone Propionate (Flonase) 1 spr DAVID DAILY PRN PRN Reason: stuffy nose Guaifenesin/Codeine Phosphate (Guaifenesin/Codeine) 10 ml PO Q6H PRN PRN Reason: Cough Heparin Sodium (Porcine) (Heparin) 5,000 units SC Q8 [facility] Last Admin: 07/23/17 06:11 Dose: Not Given Azithromycin 500 mg/ Sodium (Chloride) 250 mls @ 250 mls/hr IVPB DAILY [facility] Last Admin: 07/22/17 12:44 Dose: 250 mls/hr Ceftriaxone Sodium 1 gm/ (Sodium Chloride) 100 mls @ 100 mls/hr IVPB DAILY [facility] Last Admin: 07/22/17 11:55 Dose: 100 mls/hr Sodium Chloride (Sodium Chloride 0.45%) 1,000 mls @ 50 mls/hr IV .Q20H [facility] Last Admin: 07/22/17 15:41 Dose: Not Given Methylprednisolone (Solu-Medrol) 40 mg IVP Q8H [facility] Last Admin: 07/23/17 06:12 Dose: Not Given Metoprolol Tartrate (Lopressor) 50 mg PO BID [facility] Last Admin: 07/23/17 09:04 Dose: 50 mg Nicotine (Nicoderm Cq) 1 patch TD DAILY [facility] Last Admin: 07/23/17 09:04 Dose: 1 patch Ondansetron HCl (Zofran Inj) 4 mg IVP Q6 PRN PRN Reason: Nausea/Vomiting Last Admin: 07/18/17 13:32 Dose: 4 mg Prednisone (Prednisone Tab) 50 mg PO DAILY [facility] Last Admin: 07/23/17 09:38 Dose: 50 mg - Labs Labs: 07/22/17 11:21 07/22/17 11:27 PT 10.1 SECONDS (9.7-12.2) 07/17/17 12:05 INR 0.9 07/17/17 12:05 APTT 29 SECONDS (21-34) 07/17/17 12:05 - Constitutional Appears: Well, Non-toxic - Head Exam Head Exam: ATRAUMATIC - Eye Exam Eye Exam: EOMI - ENT Exam ENT Exam: Mucous Membranes Moist - Neck Exam Neck Exam: Full ROM. absent: Lymphadenopathy - Respiratory Exam Respiratory Exam: Wheezes, NORMAL BREATHING PATTERN. absent: Clear to Ausculation Bilateral, Rales, Rhonchi - Cardiovascular Exam Cardiovascular Exam: REGULAR RHYTHM, +S1, +S2 - GI/Abdominal Exam GI & Abdominal Exam: Soft, Normal Bowel Sounds - Extremities Exam Extremities Exam: Full ROM. absent: Calf Tenderness - Back Exam Back Exam: NORMAL INSPECTION. absent: CVA tenderness (L), CVA tenderness (R) - Neurological Exam Neurological Exam: Alert, Awake, Oriented x3 - Psychiatric Exam Psychiatric exam: Normal Affect - Skin Skin Exam: Warm Assessment and Plan - Assessment and Plan (Free Text) Assessment: 76yo F admitted to the hospital for respiratory distress 2/2 to COPD exacerbation Respiratory Distress /2 to COPD exacerbation; acute on chronic 07/23: the patient ripped out IV and is refusing reinsertion; switched all IV meds to PO; likely d/c tomorrow 07/21-07/22: Resolved. Pt is very suspicious and refuses most intervention. She refused Echo and V/Q scan despite several attempts by staff. She also refused lung exam via auscultation. -patient refusing bipap and intubation at this time; patient is DNI - rapid flu - Negative -blood cultures - Negative -ABG Shock panel -patient is retaining CO2; 42 on 6L NC; highly recommend bipap even though patient refusing -lactate 1.3 -again should patient decompensate she is REFUSING intubation -patient received Lovenox 60mg in ER for possible PE; however in [place] and will place on Heparin drip at 4am (12 hours after first lovenox dose) -patient is refusing VQ scan at this time; cannot do PE Protocol CTA 06/27 to [place] -tachycardic, SOB, unknown anticoagulation status at hospital visit, previous cancer diagnosis, elevated D-Dimer-->high risk for PE -STAT Echo ordered; f/u results; Right Heart strain more indicative of PE; BNP elevated 1400 -patient with known CAD/CHF (patient does not know previous EF); most recent lexiscan was normal in 04/11 but had previous CABG for triple vessel disease -Initial Troponin negative; no suspicious findings on EKG; patient will be on heparin drip which will cover as well for possible NSTEMI -aspirin, plavix, patient states she takes aldactone? -Duonebs, Solumedrol, O2 Via ventimask PRN -patient cannot remember what COPD meds she takes -still smoking; will give nicotine patch -Telemetry Monitoring Acute Kidney Injury 07/23: stable 07/22: BUN 88 / Cr 1.8 ; slowly rising Discontinue Motrin (last administered 07/20) 1/2 NS at 50cc/hr - patient is highly non-compliant -d/c CLARISA/ARB Prev Hx of CAD and HTN 07/23: d/c spironolactone 2/ to elevated K 07/22: BP fluctuates 131/80 - 166/92, however patient also becomes very agitated. Monitor BP with IV hydration in place (started 07/22 14:00) As per pharmacy records: Metoprolol 50 BID Plavix 75 daily Spironolactone 25 BID Vit D 50k weekly (will hold) Losartan 25mg daily (will hold) Albuterol PRN as needed Q4H Spiriva 18mcg BID Will hold Losartan given that CLARISA and ARB should not be mixed; could be contributing to [place] Possible PNA 07/23: Bcx negative x5d; c/w PO azithromycin 500mg daily for 1 week on d/c 07/22: WBC 8.7 WNL; Blood cult negative x4d 07/21: flu negative; Blood cultures negative -Vanc 1g Q24H -Zosyn 4g Q12H -HAP since recently discharged from hospital setting [facility] [place]Elevated WBC, Cough, productive sputum Prophylaxis Pepcid Heart Healthy Diet Heparin Drip PT/OT Eval and treat Disposition: PT recommends [facility] however daughter wants to take patient home; patient would prefer this will ask for home PT patient on Home O2; 4L and should continue d/c Spironolactone 2/2 to high K c/w bronchodilators and respiratory therapy c/w azithromycin 500mg PO daily for 1 week Case discussed with attending - all management as per Dr. Wong.
[2017-07-23 11:41] LABS: BASO % 0.3 % (0.0-2.0); EOS % 0.1 % (0.0-4.0); HEMOGLOBIN 13.8 g/dL (11.0-16.0); LYMPH # 0.8 K/uL (1.0-4.3); LYMPH % 8.7 % (20.0-40.0); MEAN CELL VOLUME 91.3 fL (81.0-99.0); MEAN CORPUSCULAR HEMOGLOBIN 29.1 pg (27.0-31.0); MEAN CORPUSCULAR HGB CONC 31.9 g/dL (33.0-37.0); MEAN PLATELET VOLUME 10.1 fL (7.2-11.7); MONO # 0.4 K/uL (0.0-0.8); MONO % 5.1 % (0.0-10.0); NEUT # 7.4 K/uL (1.8-7.0); NEUT % 85.8 % (50.0-75.0); NRBC % 0.2 % (0.0-2.0); PLATELET COUNT 113 K/uL (130-400); RBC 4.72 Mil/uL (3.80-5.20); RED CELL DISTRIBUTION WIDTH 16.6 % (11.5-14.5); WHITE BLOOD COUNT 8.6 K/uL (4.8-10.8)
[2017-07-23 11:55] LABS: ALB/GLOB RATIO 1.1 (1.0-2.1); ALBUMIN 3.5 g/dL (3.5-5.0); CALCIUM 9.1 mg/dl (8.6-10.4)
[2017-07-23 12:13] LABS: BANDS 1 % (0-2); LYMPHOCYTE 10 % (20-40); MONOCYTE 4 % (0-10); NEUTROPHIL 85 % (50-75); PLATELET ESTIMATE SLIGHTLY DECREASED (NORMAL); TOTAL CELLS COUNTED 100
[2017-07-24] MEDS: Albuterol-Ipratrop 3 mg / 0.5 (3 ml) UD INH SCH ×6 (00:13→20:43)
[2017-07-24] MEDS ORDERED: Sod Polystyrene Sulf 15 gm/60 ml Susp PO ONE (08:00)
--- NOTE | 2017-07-24 10:18 | CP.PCM.PN ---
Subjective - Date & Time of Evaluation Date of Evaluation: 07/24/17 Time of Evaluation: 10:26 - Subjective Subjective: PGY2 Medicine note for Dr. Wong; all management as per Dr. Wong this patient was seen and examined at bedside this AM; denies any fevers/chills , DOMINGUEZ, CP, SOB, abdominal pain, n/v/d, dysuria/freq/urg, or lower extremity pain. Patient is desiring to go home. Objective - Vital Signs/Intake and Output Vital Signs (last 24 hours): Temp Pulse Resp BP Pulse Ox 98.5 F 70 20 135/68 97 07/24/17 08:00 07/24/17 08:00 07/24/17 08:00 07/24/17 08:00 07/24/17 08:00 Intake and Output: 07/24/17 07/24/17 06:59 18:59 Intake Total 250 Balance 250 - Medications Medications: Current Medications Acetaminophen (Tylenol 325mg Tab) 650 mg PO Q6 PRN PRN Reason: Fever >100.4 F Albuterol/Ipratropium (Duoneb 3 Mg/0.5 Mg (3 Ml) Ud) 3 ml INH RQ4 [facility] Last Admin: 07/24/17 07:36 Dose: 3 ml Amlodipine Besylate (Norvasc) 10 mg PO DAILY [facility] Last Admin: 07/23/17 09:07 Dose: 10 mg Aspirin (Ecotrin) 81 mg PO DAILY [facility] Last Admin: 07/23/17 09:04 Dose: 81 mg Azithromycin (Zithromax) 500 mg PO DAILY [facility] Last Admin: 07/23/17 09:38 Dose: 500 mg Clopidogrel Bisulfate (Plavix) 75 mg PO DAILY [facility] Last Admin: 07/23/17 09:04 Dose: 75 mg Famotidine (Pepcid) 20 mg PO DAILY [facility] Last Admin: 07/23/17 09:04 Dose: 20 mg Fluticasone Propionate (Flonase) 1 spr DAVID DAILY PRN PRN Reason: stuffy nose Guaifenesin/Codeine Phosphate (Guaifenesin/Codeine) 10 ml PO Q6H PRN PRN Reason: Cough Heparin Sodium (Porcine) (Heparin) 5,000 units SC Q8 [facility] Last Admin: 07/24/17 05:05 Dose: 5,000 units Azithromycin 500 mg/ Sodium (Chloride) 250 mls @ 250 mls/hr IVPB DAILY [facility] Last Admin: 07/22/17 12:44 Dose: 250 mls/hr Ceftriaxone Sodium 1 gm/ (Sodium Chloride) 100 mls @ 100 mls/hr IVPB DAILY [facility] Last Admin: 07/22/17 11:55 Dose: 100 mls/hr Sodium Chloride (Sodium Chloride 0.45%) 1,000 mls @ 50 mls/hr IV .Q20H [facility] Last Admin: 07/22/17 15:41 Dose: Not Given Methylprednisolone (Solu-Medrol) 40 mg IVP Q8H [facility] Last Admin: 07/23/17 06:12 Dose: Not Given Metoprolol Tartrate (Lopressor) 50 mg PO BID [facility] Last Admin: 07/23/17 17:38 Dose: 50 mg Nicotine (Nicoderm Cq) 1 patch TD DAILY [facility] Last Admin: 07/23/17 09:04 Dose: 1 patch Ondansetron HCl (Zofran Inj) 4 mg IVP Q6 PRN PRN Reason: Nausea/Vomiting Last Admin: 07/18/17 13:32 Dose: 4 mg Prednisone (Prednisone Tab) 50 mg PO DAILY [facility] Last Admin: 07/23/17 09:38 Dose: 50 mg - Labs Labs: 07/23/17 11:31 07/23/17 11:31 PT 10.1 SECONDS (9.7-12.2) 07/17/17 12:05 INR 0.9 07/17/17 12:05 APTT 29 SECONDS (21-34) 07/17/17 12:05 - Constitutional Appears: Non-toxic - Head Exam Head Exam: ATRAUMATIC - Eye Exam Eye Exam: EOMI - ENT Exam ENT Exam: Mucous Membranes Moist - Neck Exam Neck Exam: Full ROM. absent: Lymphadenopathy - Respiratory Exam Respiratory Exam: Clear to Ausculation Bilateral, NORMAL BREATHING PATTERN. absent: Rales, Rhonchi, Wheezes - Cardiovascular Exam Cardiovascular Exam: REGULAR RHYTHM, +S1, +S2 - GI/Abdominal Exam GI & Abdominal Exam: Soft, Normal Bowel Sounds - Rectal Exam Rectal Exam: Deferred - Extremities Exam Extremities Exam: Full ROM. absent: Calf Tenderness - Back Exam Back Exam: NORMAL INSPECTION. absent: CVA tenderness (L), CVA tenderness (R) - Neurological Exam Neurological Exam: Alert, Awake, Oriented x3 - Psychiatric Exam Psychiatric exam: Normal Affect - Skin Skin Exam: Warm Assessment and Plan - Assessment and Plan (Free Text) Assessment: 76yo F admitted to the hospital for respiratory distress 2/2 to COPD exacerbation Respiratory Distress /2 to COPD exacerbation; acute on chronic; resolved 07/23: the patient ripped out IV and is refusing reinsertion; switched all IV meds to PO; likely d/c tomorrow 07/21-07/22: Resolved. Pt is very suspicious and refuses most intervention. She refused Echo and V/Q scan despite several attempts by staff. She also refused lung exam via auscultation. -patient refusing bipap and intubation at this time; patient is DNI - rapid flu - Negative -blood cultures - Negative -ABG Shock panel -patient is retaining CO2; 42 on 6L NC; highly recommend bipap even though patient refusing -lactate 1.3 -again should patient decompensate she is REFUSING intubation -patient received Lovenox 60mg in ER for possible PE; however in [place] and will place on Heparin drip at 4am (12 hours after first lovenox dose) -patient is refusing VQ scan at this time; cannot do PE Protocol CTA 06/27 to [place] -tachycardic, SOB, unknown anticoagulation status at hospital visit, previous cancer diagnosis, elevated D-Dimer-->high risk for PE -STAT Echo ordered; f/u results; Right Heart strain more indicative of PE; BNP elevated 1400 -patient with known CAD/CHF (patient does not know previous EF); most recent lexiscan was normal in 04/11 but had previous CABG for triple vessel disease -Initial Troponin negative; no suspicious findings on EKG; patient will be on heparin drip which will cover as well for possible NSTEMI -aspirin, plavix, patient states she takes aldactone? -Duonebs, Solumedrol, O2 Via ventimask PRN -patient cannot remember what COPD meds she takes -still smoking; will give nicotine patch -Telemetry Monitoring The patient will be given smoking patch, 7mg, to be used daily The patient will be given azithromycin, PO 500mg, to be taken for 7 more days the patient should resume all home medications for COPD that she already has Acute Kidney Injury 07/23: stable 07/22: BUN 88 / Cr 1.8 ; slowly rising Discontinue Motrin (last administered 07/20) /2 NS at 50cc/hr - patient is highly non-compliant -d/c CLARISA/ARB Will be stopping the patients use of CLARISA and ARB Will be stopping the patients use of aldactone 2/2 to hyperkalemia c/w Metoprolol 50 BID c/w Plavix 75 daily d/c Spironolactone 25 BID c/w Vit D 50k weekly (will hold) d/c Losartan 25mg daily (will hold) c/w Albuterol PRN as needed Q4H c/w Spiriva 18mcg BID Prev Hx of CAD and HTN 07/23: d/c spironolactone 2/ to elevated K 07/22: BP fluctuates 131/80 - 166/92, however patient also becomes very agitated. Monitor BP with IV hydration in place (started 07/22 14:00) As per pharmacy records: Metoprolol 50 BID Plavix 75 daily Spironolactone 25 BID Vit D 50k weekly (will hold) Losartan 25mg daily (will hold) Albuterol PRN as needed Q4H Spiriva 18mcg BID Will hold Losartan given that CLARISA and ARB should not be mixed; could be contributing to [place] Possible PNA 07/23: Bcx negative x5d; c/w PO azithromycin 500mg daily for 1 week on d/c 07/22: WBC 8.7 WNL; Blood cult negative x4d 07/21: flu negative; Blood cultures negative -Vanc 1g Q24H -Zosyn 4g Q12H -HAP since recently discharged [place] [facility]Elevated WBC, Cough, productive sputum Prophylaxis Pepcid Heart Healthy Diet Heparin Drip PT/OT Eval and treat Disposition: PT recommends [facility] however daughter wants to take patient home; patient would prefer this will ask for home PT patient on Home O2; 4L and should continue d/c Spironolactone 2/2 to high K d/c Losartan 25mg daily (will hold) c/w bronchodilators and respiratory therapy c/w azithromycin 500mg PO daily for 1 week fill prescription for prednisone 40mg BID for 7 days c/w Metoprolol 50 BID c/w Plavix 75 daily c/w Vit D 50k weekly (will hold) c/w Albuterol PRN as needed Q4H c/w Spiriva 18mcg BID New Meds for home: Azithromycin 500mg daily for 7 days prednisone 40mg BID for 7 days amlodipine 10mg for HTN Case discussed with attending - all management as per Dr. Wong. COPD - CM - COPD Progress Note Spirometry Assessment Completed:: Yes FEV1/FVC<70: No Plan to assess at outpatient follow up: Yes Symptoms:: Increase in Dyspnea Initial CXR:: small pNA ABG:: elevated CO2; patient refused bipap and intubation and is DNI Antibiotics Not Indicated: No Systemic Steroids w/ methylprednisolone Name/Dose/Frequency:: Yes, Solumerol 40mg IV BID switched to PO prednisone Oxygen Delivery Method: Nasal Cannula Smoking cessation counseling all stages copd exacerbation: Yes (given patch)
[2017-07-24 11:27] LABS: BASO % 0.1 % (0.0-2.0); EOS % 0.1 % (0.0-4.0); HEMOGLOBIN 13.3 g/dL (11.0-16.0); LYMPH % 10.5 % (20.0-40.0); MEAN CELL VOLUME 91.3 fL (81.0-99.0); MEAN CORPUSCULAR HGB CONC 31.8 g/dL (33.0-37.0); MEAN PLATELET VOLUME 9.7 fL (7.2-11.7); MONO # 0.4 K/uL (0.0-0.8); MONO % 4.5 % (0.0-10.0); NEUT % 84.8 % (50.0-75.0); NRBC % 0.1 % (0.0-2.0); RBC 4.58 Mil/uL (3.80-5.20); RED CELL DISTRIBUTION WIDTH 15.8 % (11.5-14.5); WHITE BLOOD COUNT 9.4 K/uL (4.8-10.8)
[2017-07-24 11:34] LABS: ALB/GLOB RATIO 1.2 (1.0-2.1); ALBUMIN 3.4 g/dL (3.5-5.0); CALCIUM 9.2 mg/dl (8.6-10.4)
[2017-07-24] MEDS ORDERED: Pneumococcal 23-Valent Vaccine IM ONE (12:47)
[2017-07-24] MEDS ORDERED: Influenza Vaccine 60 mcg/0.5 mL SYR (4YR UP) IM ONE (12:47)
[2017-07-25] MEDS: Albuterol-Ipratrop 3 mg / 0.5 (3 ml) UD INH SCH ×6 (00:09→19:28)
[2017-07-25 11:44] LABS: BASO # 0.1 K/uL (0.0-0.2); BASO % 0.6 % (0.0-2.0); EOS % 0.1 % (0.0-4.0); HEMOGLOBIN 13.1 g/dL (11.0-16.0); LYMPH # 1.1 K/uL (1.0-4.3); LYMPH % 11.2 % (20.0-40.0); MEAN CELL VOLUME 91.7 fL (81.0-99.0); MEAN CORPUSCULAR HEMOGLOBIN 29.5 pg (27.0-31.0); MEAN CORPUSCULAR HGB CONC 32.2 g/dL (33.0-37.0); MEAN PLATELET VOLUME 9.9 fL (7.2-11.7); MONO # 0.5 K/uL (0.0-0.8); MONO % 4.5 % (0.0-10.0); NEUT # 8.4 K/uL (1.8-7.0); NEUT % 83.6 % (50.0-75.0); NRBC % 0.1 % (0.0-2.0); RBC 4.43 Mil/uL (3.80-5.20); RED CELL DISTRIBUTION WIDTH 15.8 % (11.5-14.5); WHITE BLOOD COUNT 10.1 K/uL (4.8-10.8)
[2017-07-25 12:39] LABS: ALB/GLOB RATIO 1.2 (1.0-2.1); ALBUMIN 3.2 g/dL (3.5-5.0)
[2017-07-25] MEDS ORDERED: Sod Polystyrene Sulf 15 gm/60 ml Susp PO ONE (14:07)
[2017-07-26] MEDS: Albuterol-Ipratrop 3 mg / 0.5 (3 ml) UD INH SCH ×3 (00:01→08:21)
[2017-07-26 08:44] VITALS: BP 123/56; PULSE 55; RESP 23; TEMP 98.7; O2SAT 98
--- NOTE | 2017-07-26 09:55 | CP.PCM.PN ---
Subjective - Date & Time of Evaluation Date of Evaluation: 07/26/17 Time of Evaluation: 09:50 - Subjective Subjective: PATIENT WAS ADMITTED FOR DYSPNEA., COPD AND ELEVATED DDIMER; AAOX3 ON 3L NASAL [place] NO SIGN OF ACUTE DISTRESS NOTED Objective - Vital Signs/Intake and Output Vital Signs (last 24 hours): Temp Pulse Resp BP Pulse Ox 98.7 F 55 L 23 123/56 L 98 07/26/17 08:44 07/26/17 08:44 07/26/17 08:44 07/26/17 08:44 07/26/17 08:44 Intake and Output: 07/26/17 07/26/17 06:59 18:59 Intake Total 320 Balance 320 - Medications Medications: Current Medications Acetaminophen (Tylenol 325mg Tab) 650 mg PO Q6 PRN PRN Reason: Fever >100.4 F Albuterol/Ipratropium (Duoneb 3 Mg/0.5 Mg (3 Ml) Ud) 3 ml INH RQ4 [facility] Last Admin: 07/26/17 08:21 Dose: 3 ml Amlodipine Besylate (Norvasc) 10 mg PO DAILY [facility] Last Admin: 07/25/17 09:27 Dose: 10 mg Aspirin (Ecotrin) 81 mg PO DAILY [facility] Last Admin: 07/25/17 09:27 Dose: 81 mg Azithromycin (Zithromax) 500 mg PO DAILY [facility] Last Admin: 07/25/17 09:27 Dose: 500 mg Clopidogrel Bisulfate (Plavix) 75 mg PO DAILY [facility] Last Admin: 07/25/17 09:27 Dose: 75 mg Famotidine (Pepcid) 20 mg PO DAILY [facility] Last Admin: 07/25/17 09:27 Dose: 20 mg Fluticasone Propionate (Flonase) 1 spr DAVID DAILY PRN PRN Reason: stuffy nose Guaifenesin/Codeine Phosphate (Guaifenesin/Codeine) 10 ml PO Q6H PRN PRN Reason: Cough Heparin Sodium (Porcine) (Heparin) 5,000 units SC Q8 [facility] Last Admin: 07/26/17 06:00 Dose: Not Given Azithromycin 500 mg/ Sodium (Chloride) 250 mls @ 250 mls/hr IVPB DAILY [facility] Last Admin: 07/22/17 12:44 Dose: 250 mls/hr Ceftriaxone Sodium 1 gm/ (Sodium Chloride) 100 mls @ 100 mls/hr IVPB DAILY [facility] Last Admin: 07/22/17 11:55 Dose: 100 mls/hr Sodium Chloride (Sodium Chloride 0.45%) 1,000 mls @ 50 mls/hr IV .Q20H [facility] Last Admin: 07/22/17 15:41 Dose: Not Given Methylprednisolone (Solu-Medrol) 40 mg IVP Q8H [facility] Last Admin: 07/23/17 06:12 Dose: Not Given Metoprolol Tartrate (Lopressor) 50 mg PO BID [facility] Last Admin: 07/25/17 18:40 Dose: Not Given Nicotine (Nicoderm Cq) 1 patch TD DAILY [facility] Last Admin: 07/25/17 09:28 Dose: 1 patch Ondansetron HCl (Zofran Inj) 4 mg IVP Q6 PRN PRN Reason: Nausea/Vomiting Last Admin: 07/18/17 13:32 Dose: 4 mg Prednisone (Prednisone Tab) 50 mg PO DAILY [facility] Last Admin: 07/25/17 09:26 Dose: 50 mg - Labs Labs: 07/25/17 11:31 07/25/17 11:31 PT 10.1 SECONDS (9.7-12.2) 07/17/17 12:05 INR 0.9 07/17/17 12:05 APTT 29 SECONDS (21-34) 07/17/17 12:05 Assessment and Plan - Assessment and Plan (Free Text) Assessment: PATIENT SEEN AND EAMINED AT THE BEDSIDE LUNG SOUND CLEAR ACORDING TO THE PROGRESS NOTED PATIENT HAS BEEN DENYING ECHO/ V/G SCAN/ CTA CANNOT BE PERFORM DUE TO [place]/ DISCUSS WITH DR CRAWFORD WHO CLEAR THE PATIENT FOR DC PER DR MURCIA PATIENT HAD A SEVERE COPD DISCUSS WITH PATIENT ABOUT DC INSTRUCTION WHO OK AND VERBALIZED UNDERSTANDING
--- NOTE | 2017-07-28 07:53 | DS ---
DATE: 07/26/2017 The patient was admitted to the hospital with chief complaint of shortness of breath, wheezing, fatigue, tiredness. The patient came to the hospital, advised admission. The patient has a history of COPD, the patient is a nonsmoker. The patient alert, awake, oriented. Chest heart regular, abdomen soft ____ . The patient is continued on one-to-one. The patient's showing improvement and will be discharged today on home oxygen along with her family. DIAGNOSES: Recurrent chronic obstructive pulmonary disease and dementia. Jayme Wong MD
--- NOTE | 2017-07-28 08:08 | PN ---
DATE: The patient is improving. Shortness of breath is less. The patient will be discharged today arrangement. Jayme Wong MD
== END 2017-07-26 11:32 | disposition home or self-care (01) | DRG 190 ==
LOC: C.ER 11:17 → C.9E 14:52 → C.9I 14:52 → C.3T 07-18 17:54
PROVIDERS: ADMIT Internal Medicine Pulmonary Disease; ATTEND Internal Medicine Pulmonary Disease
DX: J44.0 Chronic obstructive pulmonary disease with (acute) lower respiratory infection (principal); J18.9 Pneumonia, unspecified organism; N17.9 Acute kidney failure, unspecified; J44.1 Chronic obstructive pulmonary disease with (acute) exacerbation; I11.0 Hypertensive heart disease with heart failure; E87.5 Hyperkalemia; I48.91 Unspecified atrial fibrillation; I50.9 Heart failure, unspecified; F03.90 Unspecified dementia, unspecified severity, without behavioral disturbance, psychotic disturbance, mood disturbance, and anxiety; F17.210 Nicotine dependence, cigarettes, uncomplicated; I25.10 Atherosclerotic heart disease of native coronary artery without angina pectoris; Z85.3 Personal history of malignant neoplasm of breast; Z85.850 Personal history of malignant neoplasm of thyroid; Z90.12 Acquired absence of left breast and nipple; Z90.710 Acquired absence of both cervix and uterus; Z91.19 Patient's noncompliance with other medical treatment and regimen; Z95.1 Presence of aortocoronary bypass graft; Y95 Nosocomial condition